=== PATIENT | female | born 1990 | race Caucasian/White ===

== ENCOUNTER → 2016-09-17 | Outpatient (CLI) | payer BC ==
--- NOTE | 2016-09-17 08:52 | DIAGNOSTIC IMAGING REPORT ---
PELVIC ULTRASOUND, TRANSABDOMINAL AND TRANSVAGINAL HISTORY: Left lower quadrant abdominal pain. COMPARISON: None. FINDINGS: Uterus: 7.2 x 3.9 x 2.3 cm. No uterine masses. Endometrial stripe: 1 mm in thickness. Right ovary: Obscured by overlying bowel gas. Left ovary: Obscured by overlying bowel gas. Miscellaneous:No pelvic free fluid. IMPRESSION: Normal uterus. The ovaries were observed by overlying bowel gas. Electronically signed by: Ankush Knapp M.D. 09/17/2016 8:50 AM Dictated Date/Time: 09/17/2016 8:49 AM
== END | disposition home or self-care (01) ==
LOC: C.ULTR 07:50
PROVIDERS: ATTEND Internal Medicine
DX: Z00.00 Encounter for general adult medical examination without abnormal findings (principal); R10.32 Left lower quadrant pain